=== PATIENT | male | born 1990 | race Caucasian/White ===

== ENCOUNTER 2018-04-02 22:09 | Emergency (ER) | payer SELFPAY ==
[~2018-04-02] VITALS: Ht 182.9 cm; Wt 85.6 kg
[2018-04-02 22:57] LABS: HEMATOCRIT 46.5 % (39.0-50.0); HEMOGLOBIN 16.3 g/dl (14.0-18.0); IMMATURE GRANULOCYTES 0.1 % (0.0-5.0); MEAN CORPUSCULAR HGB 30.1 pG CALC (26.0-32.0); MEAN CORPUSCULAR HGB CONC 35.1 g/L CALC (32.0-36.0); NEUT# 4.33 thou/uL (1.82-7.42); RED BLOOD COUNT 5.41 mill/uL (4.70-6.10); RED CELL DISTRI WIDTH 12.6 % (11.5-15.5); URINE BLOOD DIPSTICK LARGE (NEGATIVE); URINE COLOR YELLOW; URINE GLUCOSE - DIPSTICK NEGATIVE (NEGATIVE); URINE KETONE TRACE mg/dL (NEGATIVE); URINE LEUK ESTERASE NEGATIVE (NEGATIVE); URINE NITRITE - DIPSTICK NEGATIVE (Negative); URINE PROTEIN - DIPSTICK 30 mg/dL (NEG-TRACE); URINE SPECIFIC GRAVITY >=1.030; URINE UROBILINOGEN - DIPSTICK 0.2 E.U./dL (0.2)
[2018-04-02 23:00] LABS: URINE BILIRUBIN - DIPSTICK NEGATIVE (NEGATIVE); URINE CLARITY CLEAR
[2018-04-02 23:11] LABS: ALBUMIN 4.7 g/dL (3.2-5.0); ALKALINE PHOSPHATASE 63 u/l (38-126); ANION GAP 18 (6-22 (CALC)); BILIRUBIN, TOTAL 0.6 mg/dL (0.0-1.4); BUN 14 mg/dL (9-20); BUN/CREATININE RATIO 12 (12-20 (CALC)); CARBON DIOXIDE 24 mmol/l (22-30); CHLORIDE 107 mmol/l (95-108); CREATININE 1.2 mg/dL (0.7-1.3); GFR > 60 ML/MIN (>=60 (CALC)); GFR FOR AFR.AMER. > 60 ML/MIN (>=60 (CALC)); POTASSIUM 4.1 mmol/l (3.5-5.1); SGOT/AST 21 u/l (17-59); SGPT/ALT 31 u/l (21-72); SODIUM 146 mmol/l (137-146); TOTAL PROTEIN 7.9 g/dL (6.3-8.2); URINE BACTERIA MODERATE hpf; URINE EPITHELIAL CELLS FEW EPI/hpf (0-FEW); URINE RBC TNTC RBC/hpf (0-5); URINE WBC 0-2 WBC/hpf (0-5)
[2018-04-02 23:12] LABS: URINE CALCIUM OXALATE CRYSTALS MODERATE lpf
[2018-04-03] MEDS ORDERED: PERCOCET 5/325M1 TAB PO (02:04)
[2018-04-03 02:05] VITALS: BP 112/64
[2018-04-03] MEDS ORDERED: CIPROFLOXACN500 MG PO (02:05)
== END 2018-04-03 02:15 | disposition home or self-care (01) | DRG 694 ==
LOC: ED 22:09
PROVIDERS: Emergency Medicine
DX: N20.1 Calculus of ureter (principal); F17.210 Nicotine dependence, cigarettes, uncomplicated

== ENCOUNTER 2018-04-16 10:34 | Emergency (ER) | payer SELFPAY ==
[~2018-04-16] VITALS: Ht 182.9 cm; Wt 79.5 kg
[~2018-04-16 10:34] MED LIST: CIPROFLOXACN500 MG PO; PERCOCET 5/325M1 TAB PO
[2018-04-16 11:08] LABS: HEMATOCRIT 47.2 % (39.0-50.0); HEMOGLOBIN 16.3 g/dl (14.0-18.0); IMMATURE GRANULOCYTES 0.4 % (0.0-5.0); MEAN CELL VOLUME 86.4 fL CALC (80.0-100.0); MEAN CORPUSCULAR HGB 29.9 pG CALC (26.0-32.0); MEAN CORPUSCULAR HGB CONC 34.5 g/L CALC (32.0-36.0); NEUT# 5.45 thou/uL (1.82-7.42); RED BLOOD COUNT 5.46 mill/uL (4.70-6.10); RED CELL DISTRI WIDTH 12.5 % (11.5-15.5)
[2018-04-16 11:20] LABS: ALKALINE PHOSPHATASE 62 u/l (38-126); AMYLASE 38 u/l (30-110); ANION GAP 19 (6-22 (CALC)); BILIRUBIN, TOTAL 0.7 mg/dL (0.0-1.4); BUN 15 mg/dL (9-20); BUN/CREATININE RATIO 12 (12-20 (CALC)); CARBON DIOXIDE 25 mmol/l (22-30); CHLORIDE 108 mmol/l (95-108); CREATININE 1.2 mg/dL (0.7-1.3); GFR > 60 ML/MIN (>=60 (CALC)); GFR FOR AFR.AMER. > 60 ML/MIN (>=60 (CALC)); LIPASE 134 u/l (23-300); POTASSIUM 4.4 mmol/l (3.5-5.1); SGOT/AST 24 u/l (17-59); SGPT/ALT 35 u/l (21-72); SODIUM 147 mmol/l (137-146); TOTAL PROTEIN 8.3 g/dL (6.3-8.2)
[2018-04-16 13:13] LABS: URINE BILIRUBIN - DIPSTICK NEGATIVE (NEGATIVE); URINE BLOOD DIPSTICK LARGE (NEGATIVE); URINE GLUCOSE - DIPSTICK NEGATIVE (NEGATIVE); URINE KETONE 40 mg/dL (NEGATIVE); URINE LEUK ESTERASE NEGATIVE (NEGATIVE); URINE NITRITE - DIPSTICK NEGATIVE (Negative); URINE PROTEIN - DIPSTICK TRACE mg/dL (NEG-TRACE); URINE SPECIFIC GRAVITY 1.025; URINE UROBILINOGEN - DIPSTICK 0.2 E.U./dL (0.2)
[2018-04-16 13:14] LABS: URINE CLARITY HAZY; URINE COLOR DK. YELLOW
[2018-04-16 13:17] LABS: URINE EPITHELIAL CELLS FEW EPI/hpf (0-FEW); URINE RBC 25-50 RBC/hpf (0-5)
[2018-04-16] MEDS ORDERED: LORTAB 1010 MG PO (15:29)
[2018-04-16] MEDS ORDERED: TAMSULOSIN0.4 MG PO (15:29)
[2018-04-16] MEDS ORDERED: ZOFRAN ODT4 MG PO (15:29)
[2018-04-16 16:30] VITALS: BP 122/60
== END 2018-04-16 16:40 | disposition home or self-care (01) | DRG 694 ==
LOC: ED 10:34
PROVIDERS: Emergency Medicine
DX: N13.2 Hydronephrosis with renal and ureteral calculous obstruction (principal); F17.210 Nicotine dependence, cigarettes, uncomplicated; Z87.442 Personal history of urinary calculi

== ENCOUNTER 2018-09-15 23:45 | Emergency (ER) | payer SELFPAY ==
[~2018-09-15] VITALS: Ht 182.9 cm; Wt 73.0 kg
[~2018-09-15 23:45] MED LIST changes: +LORTAB 1010 MG PO; +TAMSULOSIN0.4 MG PO; +ZOFRAN ODT4 MG PO
[2018-09-16] MEDS ORDERED: AMOXICILLIN500 MG PO (00:48)
[2018-09-16 01:02] VITALS: BP 134/82
== END 2018-09-16 01:03 | disposition home or self-care (01) | DRG 153 ==
LOC: ED 23:45
DX: J02.0 Streptococcal pharyngitis (principal); H66.93 Otitis media, unspecified, bilateral; F17.210 Nicotine dependence, cigarettes, uncomplicated

== ENCOUNTER 2019-09-17 | Emergency (ER) | payer SELFPAY ==
[~2019-09-17] MED LIST changes: +AMOXICILLIN500 MG PO
[2019-09-17] MEDS ORDERED: MOTRIN800 MG PO ×2 (19:03)
[2019-09-17] MEDS ORDERED: AMOXICILLIN500 MG PO (19:03)
== END 2019-09-17 19:35 | disposition home or self-care (01) | DRG 159 ==
DX: K04.7 Periapical abscess without sinus (principal); K02.9 Dental caries, unspecified; F17.210 Nicotine dependence, cigarettes, uncomplicated

== ENCOUNTER 2020-04-28 06:34 | Emergency (ER) | payer SELFPAY ==
[~2020-04-28] VITALS: Ht 182.9 cm; Wt 68.1 kg
[~2020-04-28 06:34] MED LIST changes: +MOTRIN800 MG PO
[2020-04-28 08:00] VITALS: BP 132/78
== END 2020-04-28 08:05 | disposition home or self-care (01) | DRG 605 ==
LOC: ED 06:34
PROC: 0HQ0XZZ Repair Scalp Skin, External Approach (ICD-10-PCS; principal; 2020-04-28)
DX: S01.01XA Laceration without foreign body of scalp, initial encounter (principal); F17.210 Nicotine dependence, cigarettes, uncomplicated; W22.8XXA Striking against or struck by other objects, initial encounter; Y93.89 Activity, other specified; Y92.009 Unspecified place in unspecified non-institutional (private) residence as the place of occurrence of the external cause

== ENCOUNTER 2020-05-07 09:08 | Emergency (ER) | payer SELFPAY ==
[~2020-05-07] VITALS: Ht 182.9 cm; Wt 76.0 kg
[2020-05-07 09:57] VITALS: BP 137/81
== END 2020-05-07 09:55 | disposition home or self-care (01) | DRG 950 ==
LOC: ED 09:08
DX: S01.01XD Laceration without foreign body of scalp, subsequent encounter (principal); F17.210 Nicotine dependence, cigarettes, uncomplicated; X58.XXXD Exposure to other specified factors, subsequent encounter